=== PATIENT | male | born 1995 | race Hispanic/Latino ===

== ENCOUNTER 2025-05-07 18:41 | Emergency (ER) | payer OTHER ==
[~2025-05-07 18:41] MED LIST: Iopamidol 300 61% 100 ML VIAL FS ONE
[2025-05-07 21:14] LABS: #Basophils Less than 0.03 10x3/uL (0.0-0.2); #Eosinophils 0.05 10x3/uL (0.0-0.5); #Monocytes 0.58 10x3/uL (0.0-1.1); #Neutrophils 3.74 10x3/uL (1.5-8.4); %Basophils 0.2 % (0.0-2.0); %Eosinophils 0.9 % (0.0-6.0); %Lymphocytes 23.4 % (18.0-47.0); %Monocytes 10.1 % (0.0-10.0); %Neutrophils 65.2 % (40.0-75.0); Hematocrit 40.4 % (38.8-50.0); Hemoglobin 13.5 g/dL (13.5-17.5); Mean Corpuscular Hemoglobin 28.5 pg (27.0-33.0); Mean Corpuscular Volume 85.4 fL (81.2-95.1); Platelet Count 257 10x3/uL (150-450); Red Blood Cell (RBC) Count 4.73 10x6/uL (4.32-5.72); White Blood Cell (WBC) Count 5.73 10x3/uL (3.5-10.5)
[2025-05-07] MEDS ORDERED: Ondansetron PF 4 MG/2 ML Vial ONE (21:20)
[2025-05-07] MEDS ORDERED: HYDROmorphone 0.5 MG/0.5 ML SYRINGE ONE (21:20)
[2025-05-07 21:30] LABS: ALT (SGPT) 138 U/L (Less than 45); AST (SGOT) 352 U/L (11-34); Albumin 4.2 g/dL (3.1-4.5); Alkaline Phosphatase 63 U/L (40-110); Anion Gap 11 mmol/L (10-20); BUN (Urea Nitrogen) 7 mg/dL (8.9-20.6); Bilirubin, Total 0.7 mg/dL (0.3-1.2); Calc. Creatinine Clearance 0 mL/min (70-130); Calcium 8.8 mg/dL (7.8-10.44); Carbon Dioxide 26 mmol/L (22-29); Chloride 109 mmol/L (98-107); Globulin 3.5 g/dL (2.4-3.5); Glucose 101 mg/dL (70-105); Lipase 158 U/L (8-78); Potassium 3.9 mmol/L (3.5-5.1); Sodium 142 mmol/L (136-145)
== END 2025-05-08 00:01 ==
LOC: CSHERS 18:41 → EEVIPCON 18:41 → CSHERS 05-08 00:01
DX: R10.13 Epigastric pain (principal); E11.9 Type 2 diabetes mellitus without complications
CPT/HCPCS: 74177; 80053; 83690; 85025; 96374; 96375; J1171; J2405; Q9967